=== PATIENT | male | born 1965 | race Caucasian/White ===

== ENCOUNTER 2018-12-31 08:22 | Emergency (ER) | payer OTHER ==
[~2018-12-31] VITALS: Ht 172.7 cm; Wt 113.4 kg
[2018-12-31] MEDS ORDERED: MIDAZOLAM 100mg/100ml NS BAG 100 ML IV PRN (09:00)
[2018-12-31] MEDS ORDERED: GELATIN SPONGE SIZE 100. ONE (09:04)
[2018-12-31] MEDS ORDERED: SURGICEL HEMOSTAT 4X8 EACH. TP ONE (09:15)
[2018-12-31] MEDS ORDERED: MIDAZOLAM 100mg/100ml NS BAG 100 ML IV ONE (09:15)
[2018-12-31 09:18] LABS: HEMOGLOBIN ISTAT 14.6 g/dL (14-18); ION CA ISTAT 1.19 mmol/L (1.13-1.32)
--- NOTE | 2018-12-31 09:27 | PHYS DOC ---
Past Medical History Past Medical History: No Pertinent History Past Surgical History: No Surgical History Alcohol Use: None Drug Use: None Adult General Chief Complaint Chief Complaint: unresponsive HPI HPI 53-year-old male presenting to the emergency department today with acute unresponsiveness. He comes in by EMS. He has a history of diabetes and hypertension. Report by EMS states the patient felt numbness in his left arm and left leg and then went suddenly unresponsive. Upon EMS arrival the patient was unresponsive. They placed a nasal trumpet in and placed him on 100% nonrebreather and brought him in for further care. On arrival into the emergency department trauma bay the patient was making gurgling sounds and completely unresponsive. No further history was available at this time. Onset today. Location generalized. Duration constant. No alleviating or exacerbating factors. Medical history includes diabetes and hypertension and no further history is available this time because of the patient's medical condition. Excellent surgical history is unknown because of the patient's medical condition Social history and review of systems are unavailable to be obtained because the patient's medical condition. ED course: 53-year-old male presenting to the emergency department today suddenly comatose. On arrival he is hypertensive and making gurgling sounds. Concern for airway protection. Preparation for intubation was made with backup plan. Patient was given succinyl and etomidate. Immediately upon being given the medications the patient profusely vomited. First set of suction was used but unfortunately got clogged because the patient's chunky vomit. Second suction was utilized and also got clogged because of chunks in the vomit and clots of blood. We attempted intubation using a Mac 3 and were unable to visualize the airway structures. We also attempted intubation using a video laryngoscopy however the patient's vomit made a video laryngoscopy unable to be obtained. We're unable to pack the patient because the patient's vomit was so profuse. We found ourselves and cannot intubated and cannot ventilate situation. The patient's oxygen saturations then turned down, we immediately began a cricothyrotomy at bedside and when the second set of suction stopped working we had anesthesia paged emergently to the emergency department for help with airway. We initiated a cricothyrotomy including making incision in the midline of the neck and probing with my finger down to the neck structures. At that time anesthesia was able to re-landscaping supervisor the second suction and placed an LMA in and began ventilating the patient. The patient sustained low oxygen saturations for approximately 1 minute. He then was ventilated 200% oxygen through the LMA and anesthesia was able to get an airway from the oropharyngeal region. We then had our surgeons paged emergently for suturing of the cricothyrotomy wound. Drs. Duval and claudine were at bedside at 854. Medications were given at approximately between 8:[address] Pendleton was able to come at 842. General surgery repaired the wound. After airway was obtained, the patient then went to head CT with CT angiogram of the head neck. Time is now 923. CT head shows signs of early cerebellar stroke. CT angiogram shows basilar artery occlusion. I spoke with Dr. jimenez our neurologist and inquired about the administration of TPA. I spoke with her at 1042. The patient's stroke workup was delayed due to airway complications. Dr. jimenez recommends no TPA. I spoke with Dr. Bingham at [facility]. She also recommends no TPA. We were able to cloud the images to their neuro interventional list. She called me back at approximately 1102 and recommends transfer to the [facility] to the emergency department for higher stroke level of care. TPA contraindicated due to cerebellar infarction. Patient's endotracheal tube was right main stemmed, we had to pull back the tube twice. Final x-ray shows ET tube in good position. Patient was then emergently transferred to [facility] for evaluation for possible mechanical thrombectomy. Dr. jimenez was able to evaluate the patient in the emergency department prior to the patient being transferred. Current Medications Current Medications Current Medications Medications (Trade) Dose Ordered Sig/Los Start Time Stop Time Status Last Admin Dose Admin Cellulose (Surgicel Hemostat 4x8) 2 each 1X ONCE 12/31/18 09:15 12/31/18 09:16 DC Etomidate (Amidate) 20 mg STK-MED ONCE 12/31/18 09:53 12/31/18 09:54 DC Fentanyl Citrate (Fentanyl 2ml Vial) 100 mcg STK-MED ONCE 12/31/18 09:54 12/31/18 09:55 DC Gelatin (Gelfoam Size 100) 1 each STK-MED ONCE 12/31/18 09:04 12/31/18 09:05 DC Info (CONTRAST GIVEN -- Rx MONITORING) 1 each PRN DAILY PRN 12/31/18 09:30 01/02/19 09:29 Iohexol (Omnipaque 350 Mg/ml) 75 ml 1X ONCE 12/31/18 09:30 12/31/18 09:31 DC 12/31/18 09:51 75 ML Lidocaine HCl (Lidocaine HCl 2% Abboject) 100 mg STK-MED ONCE 12/31/18 09:53 12/31/18 09:54 DC Midazolam HCl (Versed) 5 mg STK-MED ONCE 12/31/18 09:53 12/31/18 09:54 DC Succinylcholine Chloride (Anectine) 200 mg STK-MED ONCE 12/31/18 09:54 12/31/18 09:55 DC Allergies Allergies Allergies Coded Allergies Type Severity Reaction Last Updated Verified Unable to Assess 12/31/18 No Physical Exam Physical Exam Constitutional: Unresponsive HEENT atraumatic, pupils reactive and equal. Eyes: equal reactive pupils Neck: No JVD or crepitus Cardiovascular: bounding pulse, no murmur Lungs: Crackles bilaterally with bagging Abdomen is soft and nontender without distention. Skin: warm and dry, became cyanotic when he was hypoxic which improved with ventilation Back: Atraumatic Extremities: atraumatic with bounding pulse. Neuro: mentation: Unresponsive Strength: Does not move extremities Sensory unable to obtain Cranial nerves: Patient has equal reactive pupils but does not follow finger with gaze. not appreciable cranial nerve deficits. Psych: Does not make eye contact Current Patient Data Vital Signs Vital Signs Date Time Temp Pulse Resp B/P (MAP) Pulse Ox O2 Delivery O2 Flow Rate FiO2 12/31/18 11:24 100 Ventilator 12/31/18 08:36 91 24 12/31/18 08:22 97.6 229/105 (146) 15.0 97.6 Lab Values Laboratory Tests Test 12/31/18 08:35 12/31/18 08:39 12/31/18 09:19 12/31/18 10:00 White Blood Count 10.1 x10^3/uL (4.0-11.0) Red Blood Count 4.81 x10^6/uL (4.30-5.70) Hemoglobin 14.3 g/dL (13.0-17.5) Hematocrit 42.0 % (39.0-53.0) Mean Corpuscular Volume 87 fL (79-100) Mean Corpuscular Hemoglobin 30 pg (25-35) Mean Corpuscular Hemoglobin Concent 34 g/dL (31-37) Red Cell Distribution Width 13.3 % (11.5-14.5) Platelet Count 274 x10^3/uL (140-400) Neutrophils (%) (Auto) 73 % (31-73) Lymphocytes (%) (Auto) 22 % (24-48) L Monocytes (%) (Auto) 4 % (0-9) Eosinophils (%) (Auto) 1 % (0-3) Basophils (%) (Auto) 1 % (0-3) Neutrophils # (Auto) 7.3 x10^3uL (1.8-7.7) Lymphocytes # (Auto) 2.2 x10^3/uL (1.0-4.8) Monocytes # (Auto) 0.4 x10^3/uL (0.0-1.1) Eosinophils # (Auto) 0.1 x10^3/uL (0.0-0.7) Basophils # (Auto) 0.1 x10^3/uL (0.0-0.2) POC Hemoglobin 14.6 g/dL (14-18) POC Hematocrit 43 % (37-52) POC Sodium 136 mmol/L (135-145) POC Potassium 4.0 mmol/L (3.5-5.0) POC Chloride 98 mmol/L (98-110) POC Total CO2 30 mmol/L (23-32) Anion Gap 13 mmol/L (6-14) 12 (6-14) POC Blood Urea Nitrogen 20 mg/dL (8-26) POC Creatinine 1.0 mg/dL (0.5-1.4) Glucose Level 210 mg/dL (70-99) H 249 mg/dL (70-99) H POC Ionized Calcium (Romana) 1.19 mmol/L (1.13-1.32) POC Troponin I 0.00 ng/ml (<0.08) Prothrombin Time 13.4 SEC (11.7-14.0) Prothrombin Time INR 1.1 (0.8-1.1) Sodium Level 140 mmol/L (136-145) Potassium Level 3.4 mmol/L (3.5-5.1) L Chloride Level 101 mmol/L (98-107) Carbon Dioxide Level 27 mmol/L (21-32) Blood Urea Nitrogen 17 mg/dL (8-26) Creatinine 1.1 mg/dL (0.7-1.3) Estimated GFR (Cockcroft-Gault) 69.5 Calcium Level 8.7 mg/dL (8.5-10.1) Troponin I Quantitative < 0.017 ng/mL (0.000-0.055) O2 Saturation 93 % (92-99) Arterial Blood pH 7.28 (7.35-7.45) L Arterial Blood pCO2 at Patient Temp 50 mmHg (35-46) H Arterial Blood pO2 at Patient Temp 74 mmHg (75-108) L Arterial Blood HCO3 23 mmol/L (21-28) Arterial Blood Base Excess -4 mmol/L (-3-3) L FiO2 100 Laboratory Tests 12/31/18 08:35 Laboratory Tests 12/31/18 08:39 12/31/18 09:19 EKG EKG [] Radiology/Procedures Radiology/Procedures [] Course & Med Decision Making Course & Med Decision Making Pertinent Labs and Imaging studies reviewed. (See chart for details) [] Dragon Disclaimer Dragon Disclaimer This electronic medical record was generated, in whole or in part, using a voice recognition dictation system. 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 Medications Used: see nursing note Procedure: The patient was placed in the appropriate position. Intubation was performed using both direct and video laryngoscopy. As soon as the patient's medications were given the patient had copious amounts of vomiting and blood coming from the posterior pharyngeal region. Both suction devices were utilized however were unable to obtain clearing of the secretion enough to visualize the airway. Patient began desaturating. Anesthesia was paged. General surgery was paged. Could not enervate could not ventilate situation. began attempt at cricothyrotomy. Anesthesia working from a top was able to find an airway prior to establishing a surgical airway. General surgery repaired the cricothyrotomy wound in the emergency department. Initial confirmation of placement included bilateral breath sounds, tube fogging, adequate chest rise, adequate pulse oximetry reading. Initially the patient was right mainstem intubated. We withdrew the tube twice. Final chest x-ray shows tube in good position. Complications: hypoxic for ~ 1 min. Critical Care Time Critical care time spent was 60 minutes exclusive of procedures. Time was spent evaluating the patient, ordering the administration of medications, reevaluating the patient, discussing with the admitting provider and documenting. Problem Qualifiers MARY CORDERO MD Dec 31, 2018 09:27
[2018-12-31] MEDS ORDERED: fentaNYL PF VIAL 100 MCG/2 ML VIAL ONE ×2 (09:29→09:54)
[2018-12-31] MEDS ORDERED: CONTRAST GIVEN. MC PRN (09:30)
[2018-12-31] MEDS ORDERED: IOHEXOL 350 MG/ML 100 ML VIAL. IV ONE (09:30)
[2018-12-31 09:33] LABS: BASO # 0.1 x10^3/uL (0.0-0.2); BASO % 1 % (0-3); EOS # 0.1 x10^3/uL (0.0-0.7); EOS % 1 % (0-3); HEMOGLOBIN 14.3 g/dL (13.0-17.5); LYMPH # 2.2 x10^3/uL (1.0-4.8); LYMPH % 22 % (24-48); MEAN CORPUSCULAR HEMOGLOBIN 30 pg (25-35); MEAN CORPUSCULAR HGB CONC 34 g/dL (31-37); MEAN CORPUSCULAR VOLUME 87 fL (79-100); MONO # 0.4 x10^3/uL (0.0-1.1); MONO % 4 % (0-9); NEUT # 7.3 x10^3uL (1.8-7.7); NEUT % 73 % (31-73); PLATELET COUNT 274 x10^3/uL (140-400); RED BLOOD COUNT 4.81 x10^6/uL (4.30-5.70); RED CELL DISTRIBUTION WIDTH 13.3 % (11.5-14.5); WHITE BLOOD COUNT 10.1 x10^3/uL (4.0-11.0)
--- NOTE | 2018-12-31 09:48 | PDOC4 ---
OPERATIVE NOTE Date: Date: Dec 31, 2018 Pre-Op Diagnosis: Code stroke, aborted surgical airway, neck bleeding Post-Op Diagnosis: same Procedure Performed: Neck exploration Surgeon: Henry Velazquez Asst: Dr. Duval Anesthesia Type: GETA plus local Blood Loss: 50 Specimans Obtained: none Findings: bleeding from strap muscles and skin edge Complications: none Operative Note: 53 yo M seen in ER, being evaluated for code stroke. Difficult airway secondary to emesis and tightness. Attempted surgical airway abandoned, after pt successfully orally intubated. Surgical consultation requested for persistent neck bleeding. Patient orally intubated, hemodynamically stable and sedated. Noted to have persistent bleeding from neck wound. Prepped with betadine. Wound explored. No evidence of tracheal, esophageal or vascular injury. Bleeding noted from strap muscles and skin edge. This was controlled with 3 0 vicryl stick ties. Hemostasis controlled. Wound packed with surgicel and skin closed with 4 0 monocryl. Dressing placed. Patient returned to ER care for evaluation of stroke. ALEJANDRINA VELAZQUEZ MD Dec 31, 2018 09:48
[2018-12-31 09:50] LABS: CALCIUM 8.7 mg/dL (8.5-10.1); CREATININE 1.1 mg/dL (0.7-1.3); GFR 69.5; POTASSIUM 3.4 mmol/L (3.5-5.1)
[2018-12-31] MEDS ORDERED: ETOMIDATE 20 MG/10 ML VIAL. IV ONE ×2 (09:53→14:30)
[2018-12-31] MEDS ORDERED: MIDAZOLAM HCL/PF 5 MG/5 ML VIAL. ONE (09:53)
[2018-12-31] MEDS ORDERED: LIDOCAINE 2% 100 MG/5 ML SYRINGE. ONE (09:53)
[2018-12-31] MEDS ORDERED: SUCCINYLCHOLINE 200 MG/10 ML VIAL. ONE (09:54)
--- NOTE | 2018-12-31 09:58 | RAD ---
CHEST AP ONLY History: Post code, intubation Comparison: None. Findings: Single view of the chest is submitted. Endotracheal tube tip courses into the orifice of the right mainstem bronchus. Tip of enteric catheter is at the level of the inferior neck. There is prominent airspace opacity concentrated in the right perihilar region, also some hazy airspace opacity of the mid to superior left hemithorax. Pericardial cardiac silhouette appears somewhat enlarged. Mediastinal width is somewhat prominent. There is prominent gastric gas distention. No obvious pneumothorax is identified, limited evaluation in supine patient. Impression: 1. Endotracheal tube courses into the right mainstem bronchus. Tip of enteric catheter is in the inferior neck. Repositioning is advised. 2. There is prominent airspace opacity on the right, to lesser degree on the left. 3. There is prominent gastric gas distention. 4. There is prominence of mediastinal width of uncertain chronicity, cannot exclude pathology by radiograph. FOR INTERNAL CODING PURPOSES Critical result: Findings discussed with MARY CORDERO at 12/31/2018 9:54 AM. RESULT CODE: (C) Electronically signed by: Bill Dubose MD (12/31/2018 9:55 AM) [id number]
[2018-12-31 10:13] LABS: BASE EXCESS ABG -4 mmol/L (-3-3); HCO3 ABG 23 mmol/L (21-28); PCO2 ABG 50 mmHg (35-46); PO2 ABG 74 mmHg (75-108); SAT O2 ABG 93 % (92-99)
--- NOTE | 2018-12-31 10:17 | RAD ---
CT CODE STROKE HEAD WO History: COMATOSE, CODE STROKE Comparison: None. Technique: Noncontrast CT imaging was performed of the head. Exposure: One or more of the following individualized dose reduction techniques were utilized for this examination: 1. Automated exposure control 2. Adjustment of the mA and/or kV according to patient size 3. Use of iterative reconstruction technique. Findings: No acute hyperdense intracranial hemorrhage is identified. There is abnormal low density of the left cerebellum, greatest size about 3.8 cm. There is no midline shift. Ventricular size is within normal limits. There is endotracheal tube and enteric catheter. There is mild maxillary sinus mucosal thickening bilaterally. Mastoid air cells are aerated. Impression: 1. No acute intracranial hyperdense hemorrhage is identified. There is abnormal low density of the left cerebellum which is nonspecific, most concerning for recent acute or early subacute infarct given history, mass not excluded. FOR INTERNAL CODING PURPOSES Critical result: Findings discussed with MARY CORDERO at 12/31/2018 10:10 AM. RESULT CODE: (C) Electronically signed by: Bill Dubose MD (12/31/2018 10:14 AM) [email or web address]
[2018-12-31 10:42] LABS: FIO2 ABG 100
[2018-12-31 10:43] LABS: PROTHROMBIN TIME PATIENT 13.4 SEC (11.7-14.0)
--- NOTE | 2018-12-31 10:48 | RAD ---
CTA head and neck History: Comatose, code Technique: After bolus of intravenous contrast, volumetric CT data acquisition was acquired of the head and neck. Multiplanar reconstruction images to include MIP and 3-D reconstruction images are submitted. Exposure: One or more of the following individualized dose reduction techniques were utilized for this examination: 1. Automated exposure control 2. Adjustment of the mA and/or kV according to patient size 3. Use of iterative reconstruction technique. Comparison: None Any determination of stenosis is based on NASCET criteria. Head: FINDINGS: Exam is limited due to motion and suboptimal contrast opacification. There is visualization of the intradural vertebral arteries bilaterally, left intradural vertebral artery supplying the proximal basilar artery. Right intradural vertebral artery terminates in PICA and does not significantly contribute to the basilar artery. Majority of the basilar artery is occluded, some reconstitution distally near the tip. There is visualization of left P1 segment and proximal left superior cerebellar artery, patent posterior communicating arteries greater in size on the right. There is visualization of proximal right superior cerebellar artery. No right P1 segment is visualized. Evaluation of the more distal aspects of the posterior cerebral arteries and superior cerebellar arteries is limited on this exam. There may be segmental significant narrowing or occlusion of the proximal left P2 segment. There is probable small anterior communicating artery. There is visualization of the internal carotid arteries bilaterally at the skull base. No significant intracranial aneurysm is identified. IMPRESSION: 1. Most of basilar artery is occluded, some reconstitution near the tip. There are posterior communicating arteries bilaterally, larger in size on the right. There is -type right posterior cerebral artery. Evaluation of patency of the more distal aspects of the superior cerebellar and posterior cerebral arteries is limited on this exam. There may be segmental narrowing or occlusion of the proximal left P2 segment. Left intradural vertebral artery supplies the basilar artery, right intradural vertebral artery terminating in PICA. NECK: Findings: The exam is degraded by motion. There are normal anatomic origins of the great vessels. Left vertebral artery is dominant. No significant stenosis is identified of the cervical arterial vasculature allowing for limitations of exam. No dissection flap is identified. There are prominent infiltrates of the visualized lungs greater on the right, lungs not fully evaluated. There is endotracheal tube, tip not fully evaluated. There is enteric catheter although tip terminates just at the orifice of the proximal esophagus in the inferior neck. There is mild bilateral maxillary sinus mucosal thickening, also patchy ethmoid air cell mucosal thickening. There is pocket of hypodensity in the ventral anterior neck near level of the hyoid bone in the subcutaneous tissues, internal density measurements of component of internal gas measured about 1.9 cm transverse by 1.5 cm AP, may be due to sequela of previous procedure or wound. Impression: 1. No significant stenosis or dissection flap is identified of the cervical arterial vasculature. Left vertebral artery is dominant. 2. There is enteric catheter although tip at the orifice of the esophagus in the inferior left neck for which repositioning is advised as described for previous chest radiograph the same day. There is endotracheal tube, tip not fully included on this exam. 3. There are prominent infiltrates of the visualized lungs greater on the right. FOR INTERNAL CODING PURPOSES Critical result: Findings discussed with MARY CORDERO at 12/31/2018 10:25 AM. RESULT CODE: (C) Electronically signed by: Bill Dubose MD (12/31/2018 10:45 AM) [email or web address]
--- NOTE | 2018-12-31 10:50 | RAD ---
CHEST AP ONLY History: NG TUBE PLACEMENT Comparison: Exam earlier the same day Findings: Single view of the chest is submitted. Endotracheal tube tip has been slightly retracted although tip still near the orifice of the right mainstem bronchus. Enteric catheter is now coiled in the stomach. There are prominent infiltrates of the perihilar regions bilaterally right greater than left. No obvious pneumothorax is identified in this supine patient. Impression: 1. Endotracheal tube tip is near the orifice of the right mainstem bronchus for which retraction advised. There are again prominent infiltrates bilaterally right greater than left. Enteric catheter is now coiled in the stomach. FOR INTERNAL CODING PURPOSES Critical result: Findings discussed with MARY CORDERO at 12/31/2018 10:46 AM. RESULT CODE: (C) Electronically signed by: Bill Dubose MD (12/31/2018 10:47 AM) [id number]
[2018-12-31 11:31] VITALS: BP 116/65
--- NOTE | 2018-12-31 11:48 | RAD ---
EXAM: CHEST 1 VIEW History: Repositioning of the ET tube COMPARISON: 12/31/2018 TECHNIQUE: Single portable radiograph of the chest Findings/ impression: Low lung volumes and technique accentuates heart size and pulmonary vascularity. Mild cardiomegaly. The ET tube is now identified at the naima slightly directed to the right. The feeding tube is below the left hemidiaphragm. Linear airspace opacities identified in the bilateral lungs particularly in the right midlung zone and in the left lower lobe of the lung similar to prior exam likely atelectasis or infiltrates. Electronically signed by: Fuentes Smith MD (12/31/2018 11:45 AM) [email or web address]
[2018-12-31] MEDS ORDERED: EPINEPHrine SYRINGE 1 MG/10 ML SYRINGE ONE (12:00)
--- NOTE | 2018-12-31 13:34 | EKG ---
[facility] [address] [place] [address] Test Date: 2018-12-31 Test Time: 10:05:30 Pat Name: MAIA WOODSON Department: Room: Gender: M Coupon Clerk: : [id number] Requested By: MARY CORDERO Order Number: [id number] Reading MD: Ronal Watkins MD Measurements Intervals [place] Rate: 123 P: 0 CA: 120 QRS: 4 QRSD: 94 T: 11 QT: 334 QTc: 484 Interpretive Statements ATRIAL FIBRILLATION WITH CONTROLLED VENTRICULAR RESPONSE NON-SPECIFIC ST/T CHANGES Electronically Signed On 01-05-2019 7:52:43 [employer] by Ronal Watkins MD
[2018-12-31] MEDS ORDERED: LIDOCAINE 2% 100 MG/5 ML SYRINGE. IV ONE (14:30)
[2018-12-31] MEDS ORDERED: fentaNYL PF VIAL 100 MCG/2 ML VIAL IV ONE ×3 (14:30)
[2018-12-31] MEDS ORDERED: IV NORMAL SALINE 1000ML BAG 1,000 ML IV ONE ×2 (14:30)
[2018-12-31] MEDS ORDERED: SUCCINYLCHOLINE 200 MG/10 ML VIAL. IV ONE (14:30)
[2018-12-31] MEDS ORDERED: MIDAZOLAM HCL/PF 5 MG/5 ML VIAL. NS ONE ×2 (14:30)
[2018-12-31] MEDS ORDERED: 0.9 % SOD CHL for STERILE FIELD 10 ML DISP.SYRIN. ONE (16:00)
== END 2018-12-31 11:27 | disposition short-term general hospital (02) ==
LOC: ER 08:22
DX: I63.22 Cerebral infarction due to unspecified occlusion or stenosis of basilar artery (principal); I63.10 Cerebral infarction due to embolism of unspecified precerebral artery; R40.20 Unspecified coma; E11.9 Type 2 diabetes mellitus without complications; J96.91 Respiratory failure, unspecified with hypoxia
CPT/HCPCS: 31500; 36415; 51702; 70450; 70496; 70498; 71045; 80047; 80048; 82805; 84484; 85025; 85610; 86850; 86900; 86901; 93005; 96365; 99291; J0171; J0330; J2250; J3010; J7030; Q9967; 94002